=== PATIENT | male | born 1960 | race African-American/Black ===

== ENCOUNTER 2016-04-08 09:05 | Outpatient (CLI) | payer MEDICAID ==
[2016-04-08 12:40] LABS: #Basophils 0.1 thou/uL (0.0-0.2); #Eosinphils 0.3 thou/uL (0.0-0.7); #Lymphocytes 1.4 thou/uL (1.20-3.40); #Monocytes 0.5 thou/uL (0.11-0.59); #Neutrophils 4.4 thou/uL (1.40-6.50); %Basophils 1.6 % (0.0-1.0); %Eosinophils 4.4 % (0.0-10.0); %Lymphocytes 21.4 % (21.0-51.0); %Monocytes 7.6 % (0.0-10.0); Hematocrit 41.8 % (42.0-52.0); Mean Platelet Volume 5.8 fL (7.4-10.4); Red Blood Cell (RBC) Count 4.54 mill/uL (4.70-6.10); White Blood Cell (WBC) Count 6.7 thou/uL (4.8-10.8)
[2016-04-08 12:57] LABS: ALT (SGPT) 10 U/L (0-55); AST (SGOT) 15 U/L (5-34); Alkaline Phosphatase 78 U/L (40-150); Anion Gap 11 mmol/L (10-20); BUN (Urea Nitrogen) 16 mg/dL (8.4-25.7); Bilirubin, Total 0.6 mg/dL (0.2-1.2); Calc. Creatinine Clearance 0 mL/min (70-130); Calcium 8.8 mg/dL (7.8-10.44); Carbon Dioxide 30 mmol/L (22-29); Chloride 103 mmol/L (98-107); Estimated GFR-MDRD 86; Globulin 4.3 g/dL (2.4-3.5); LDL Cholesterol, Calculated 128 mg/dL
[2016-04-08 13:14] LABS: Hemoglobin A1c 6.2 % (4.0-6.0)
== END 2016-04-08 09:06 | disposition home or self-care (01) ==
LOC: NAVSJIPCSP 09:05
PROVIDERS: ATTEND Internal Medicine
DX: I10 Essential (primary) hypertension (principal); M1A.9XX0 Chronic gout, unspecified, without tophus (tophi); Z79.899 Other long term (current) drug therapy
CPT/HCPCS: 36415; 80053; 80061; 83036; 84443; 85025

== ENCOUNTER 2017-12-27 13:48 | Emergency (ER) | payer OTHER | END 2017-12-27 14:20 | disposition home or self-care (01) | LOC: NAV ERS 13:48 | DX: I10 Essential (primary) hypertension (principal); M10.9 Gout, unspecified; Z79.899 Other long term (current) drug therapy; Z79.82 Long term (current) use of aspirin | CPT/HCPCS: 99283 ==

== ENCOUNTER 2018-11-30 17:13 | Outpatient (CLI) | payer MEDICARE ==
--- NOTE | 2018-12-01 09:37 | CT ---
CT Abdomen Pelvis WO Con 11/30/2018 5:15 PM HISTORY: Elevated liver function tests and elevated creatinine. COMPARISON: None. Technique: Multiple contiguous axial CT images are obtained through the abdomen and pelvis without IV contrast. Coronal reformats are provided. FINDINGS: This examination is limited for the evaluation of solid organs and vascular structures due to the lac k of intravenous contrast. Lower Chest: Atelectasis is present at the right lung base. There is a noncalcified 9 mm pulmonary no dule at the left lung base. Abdomen: Liver: There is slight heterogeneity in the right hepatic lobe. This is difficult to adequately evalu ate and may actually represent vascular structures is difficult to adequately evaluate without IV contrast. Gallbladder: Suggestive slight increased density in the dependent portion gallbladder lumen which may represent sludge and/or gallbladder calculi. Pancreas: Grossly normal nonenhanced CT appearance Spleen: Grossly normal nonenhanced CT appearance. Adrenals: Grossly normal nonenhanced CT appearance. Kidneys: There is prominent motion limited evaluation of the left kidney. No renal or ureteral calcul i are seen bilaterally, and there is no evidence of hydronephrosis. Ureters: No ureteral calculus is seen.. Pelvis: Urinary bladder: A Lockett catheter is present in the urinary bladder which is decompressed. Reproductive Organs: No pelvic masses. Lymph Nodes: No enlarged lymph nodes. Bowel: There are oval-shaped radiopaque density seen in loops of bowel in the right lower quadrant wh ich is likely intraluminal and may represent ingested material/medication. Second increased density structure may actually represent calcification adjacent to loop of bowel; however, this may also be i ntraluminal and represent ingested material. There is no evidence of a bowel obstruction. Appendix: Not definitely visualized, there are no secondary signs to suggest appendicitis. Peritoneum: No free fluid, free air, or fluid collection. Retroperitoneum: within normal limits. Vessels: Vascular calcifications are seen in the iliac arteries.. Abdominal Wall: A fat-containing ventral abdominal wall hernia is present in a supraumbilical locatio n. Bones: Multilevel degenerative changes are seen in the spine. There is suggestion of fusion of the sa croiliac joints bilaterally. Subchondral cystic changes are seen involving each acetabulum. IMPRESSION: 1. Pulmonary nodule left lung base. Follow-up CT thorax is recommended as there is prominent motion i n this region limiting adequate evaluation. 2. Suggestion of slight heterogeneity in the right hepatic lobe near the region of the madai hepatis. This may be attributable to vascular structures, but this is difficult further evaluate without IV contrast. History indicates elevated creatinine which may preclude further evaluation with CT abdomen with IV contrast. If the patient is unable to have CT abdomen with IV contrast performed, and ultrasound examination versus MRI may be helpful for further evaluation of the questioned area of het erogeneity. 3. Suggestion of minimal increased density material layering dependently within the gallbladder fundu s which may represent sludge and/or gallbladder calculi. 4. Fat-containing ventral abdominal wall hernia.
== END 2018-11-30 17:14 | disposition home or self-care (01) ==
LOC: NAV CT 17:13
PROVIDERS: ATTEND Internal Medicine
DX: R79.89 Other specified abnormal findings of blood chemistry (principal); R91.1 Solitary pulmonary nodule; K43.9 Ventral hernia without obstruction or gangrene
CPT/HCPCS: 74176

== ENCOUNTER 2019-11-04 07:41 | Emergency (ER) | payer MEDICARE ==
[2019-11-04] MEDS ORDERED: Lidocaine 1% (PF) 30 ML VIAL ONE (08:11)
== END 2019-11-04 08:40 | disposition home or self-care (01) ==
LOC: NAV ERS 07:41
DX: S71.112A Laceration without foreign body, left thigh, initial encounter (principal); I10 Essential (primary) hypertension; M10.9 Gout, unspecified; Z79.899 Other long term (current) drug therapy; Z79.82 Long term (current) use of aspirin; X58.XXXA Exposure to other specified factors, initial encounter
CPT/HCPCS: 12001; J2001

== ENCOUNTER 2020-06-13 16:06 | Emergency (ER) | payer MEDICARE ==
[~2020-06-13 16:06] MED LIST: Iopamidol 370 76% 100 ML VIAL ONE
[2020-06-13] MEDS ORDERED: Ibuprofen 800 MG TAB ONE (16:27)
[2020-06-13] MEDS ORDERED: Acetaminophen 500 MG TAB ONE (16:27)
[2020-06-13 16:39] LABS: #Basophils 0.3 thou/uL (0.0-0.2); #Lymphocytes 0.9 thou/uL (1.20-3.40); #Monocytes 1.6 thou/uL (0.11-0.59); %Basophils 2.9 % (0.0-1.0); %Eosinophils 0.1 % (0.0-10.0); %Lymphocytes 7.8 % (21.0-51.0); %Monocytes 13.5 % (0.0-10.0); %Neutrophils 75.7 % (42.0-75.0); Hemoglobin 9.2 g/dL (14.0-18.0); Mean Corpuscular HGB CONC 29.9 g/dL (32.0-36.0); Mean Corpuscular Hemoglobin 28.8 pg (27.0-31.0); Mean Corpuscular Volume 96.4 fL (78.0-98.0); Mean Platelet Volume 6.8 fL (7.4-10.4); Platelet Count 318 thou/uL (130-400); RBC Distribution Width 16.3 % (11.5-14.5); Red Blood Cell (RBC) Count 3.19 mill/uL (4.70-6.10); White Blood Cell (WBC) Count 11.8 thou/uL (4.8-10.8)
[2020-06-13 16:46] LABS: ALT (SGPT) 13 U/L (8-55); AST (SGOT) 43 U/L (5-34); Albumin 2.9 g/dL (3.4-4.8); Alkaline Phosphatase 82 U/L (40-110); Anion Gap 17 mmol/L (10-20); BUN (Urea Nitrogen) 12 mg/dL (8.4-25.7); Bilirubin, Total 0.7 mg/dL (0.2-1.2); Calc. Creatinine Clearance 0 mL/min (70-130); Calcium 8.9 mg/dL (7.8-10.44); Carbon Dioxide 26 mmol/L (23-31); Chloride 100 mmol/L (98-107); Globulin 4.8 g/dL (2.4-3.5); Glucose 142 mg/dL (80-115); Potassium 3.7 mmol/L (3.5-5.1); Protein, Total 7.7 g/dL (5.8-8.1); Sodium 139 mmol/L (136-145)
[2020-06-13] MEDS ORDERED: Sodium Chloride 0.9% 100 ML ONE (16:51)
[2020-06-13] MEDS ORDERED: Cefepime 2 GM VIAL ONE ×2 (16:51→19:08)
[2020-06-13] MEDS ORDERED: Sodium Chloride 0.9% 250 ML 250 ML ONE (16:51)
[2020-06-13] MEDS ORDERED: Vancomycin 1.5 GRAM/300 ML BAG ONE (16:51)
[2020-06-13 17:02] LABS: Bilirubin Negative (Negative); Blood, Urine Small (Negative); Glucose, Urine (Dipstick) Negative (Negative); Ketone, Urine Negative (Negative); Leukocyte Large (Negative); Nitrite Positive (Negative); Protein, Urine (Dipstick) > or equal to 300 mg/dL (Neg-Trace); Urobilinogen > or = 8.0 mg/dL (Less than 2)
[2020-06-13 17:05] LABS: Clarity Cloudy (Clear)
[2020-06-13 17:06] LABS: Squamous Epithelial 0-3 HPF (0-3); WBC/HPF Greater Than 50 HPF (0-3)
[2020-06-13 17:07] LABS: Bacteria/HPF 4+ HPF (None Seen)
[2020-06-13] MEDS ORDERED: metroNIDAZOLE 500 MG/100 ML BAG ONE (17:43)
[2020-06-13] MEDS ORDERED: Sodium Chloride 0.9% 2,000 ML ONE (18:07)
== END 2020-06-13 18:42 | disposition short-term general hospital (02) ==
LOC: NAV ERS 16:06
DX: A41.9 Sepsis, unspecified organism (principal); R65.20 Severe sepsis without septic shock; J18.9 Pneumonia, unspecified organism; N39.0 Urinary tract infection, site not specified; I10 Essential (primary) hypertension; Z79.899 Other long term (current) drug therapy; Z79.82 Long term (current) use of aspirin
CPT/HCPCS: 74177; 80053; 81003; 81015; 82274; 83605; 85025; 87040; 87077; 87086; 87149; 87186; 96365; 96366; 96367; J0692; J3370; J3490; J7050; Q9967

== ENCOUNTER 2020-06-18 14:55 | Inpatient (IN) | payer MEDICARE ==
[2020-06-18] MEDS ORDERED: Senokot S 8.6-50 MG TAB PO PRN (18:07)
[2020-06-18] MEDS ORDERED: Polyethylene Glycol 3350 17 GM Packet PO PRN (18:07)
[2020-06-18] MEDS: Ciprofloxacin 500 MG TAB PO SCH (20:51)
[2020-06-18] MEDS: Simethicone Chewable 80 MG TAB PO PRN (20:52)
[2020-06-18] MEDS: AcetaZOLAMIDE 250 MG TAB PO SCH (21:00)
[2020-06-19 05:30] LABS: Hemoglobin 10.2 g/dL (14.0-18.0); Mean Corpuscular Hemoglobin 28.9 pg (27.0-31.0); Red Blood Cell (RBC) Count 3.51 mill/uL (4.70-6.10); White Blood Cell (WBC) Count 7.2 thou/uL (4.8-10.8)
[2020-06-19 05:31] LABS: #Basophils 0.1 thou/uL (0.0-0.2); #Eosinphils 0.1 thou/uL (0.0-0.7); #Lymphocytes 1.1 thou/uL (1.20-3.40); #Monocytes 0.7 thou/uL (0.11-0.59); #Neutrophils 5.2 thou/uL (1.40-6.50); %Basophils 1.3 % (0.0-1.0); %Eosinophils 1.3 % (0.0-10.0); %Lymphocytes 15.7 % (21.0-51.0); %Monocytes 9.6 % (0.0-10.0); %Neutrophils 72.1 % (42.0-75.0); Manual Diff?? NO; Mean Corpuscular HGB CONC 28.2 g/dL (32.0-36.0); Mean Platelet Volume 6.8 fL (7.4-10.4); Platelet Count 325 thou/uL (130-400); RBC Distribution Width 17.1 % (11.5-14.5)
[2020-06-19 05:33] LABS: Albumin 2.9 g/dL (3.4-4.8); Alkaline Phosphatase 68 U/L (40-110); Anion Gap 12 mmol/L (10-20); BUN (Urea Nitrogen) 10 mg/dL (8.4-25.7); Bilirubin, Total 0.3 mg/dL (0.2-1.2); Calc. Creatinine Clearance 227 mL/min (70-130); Calcium 9.2 mg/dL (7.8-10.44); Carbon Dioxide 32 mmol/L (23-31); Chloride 100 mmol/L (98-107); Globulin 4.3 g/dL (2.4-3.5); Glucose 91 mg/dL (80-115); Potassium 3.1 mmol/L (3.5-5.1); Protein, Total 7.2 g/dL (5.8-8.1); Sodium 141 mmol/L (136-145)
[2020-06-19 05:34] LABS: ALT (SGPT) 12 U/L (8-55); AST (SGOT) 30 U/L (5-34)
[2020-06-19] MEDS: Ciprofloxacin 500 MG TAB PO SCH ×2 (06:07→21:15)
[2020-06-19] MEDS ORDERED: Potassium Chloride 20 MEQ TAB PO SCH (08:00)
[2020-06-19] MEDS: AcetaZOLAMIDE 250 MG TAB PO SCH ×2 (08:55→21:14)
[2020-06-19] MEDS: Allopurinol 100 MG TAB PO SCH (08:55)
[2020-06-19] MEDS: Simethicone Chewable 80 MG TAB PO PRN (08:56)
[2020-06-19] MEDS: Torsemide 20 MG TAB PO SCH (08:56)
[2020-06-19] MEDS: Lisinopril 10 MG TAB PO SCH (08:56)
[2020-06-19] MEDS ORDERED: Diphenoxylate HCl/Atropine Tablet PO PRN (11:56)
[2020-06-19] MEDS ORDERED: Diphenoxylate HCl/Atropine Tablet PO SCH (12:00)
[2020-06-19] MEDS: traMADol HCl 50 MG TAB PO PRN (18:24)
[2020-06-20] MEDS: Ciprofloxacin 500 MG TAB PO SCH ×2 (06:02→20:53)
[2020-06-20 07:53] LABS: Anion Gap 11 mmol/L (10-20); BUN (Urea Nitrogen) 14 mg/dL (8.4-25.7); Calc. Creatinine Clearance 219 mL/min (70-130); Calcium 8.4 mg/dL (7.8-10.44); Carbon Dioxide 33 mmol/L (23-31); Chloride 99 mmol/L (98-107); Glucose 92 mg/dL (80-115); Potassium 3.5 mmol/L (3.5-5.1); Sodium 139 mmol/L (136-145)
[2020-06-20] MEDS: Potassium Chloride 20 MEQ TAB PO SCH ×2 (08:20→16:47)
[2020-06-20] MEDS: AcetaZOLAMIDE 250 MG TAB PO SCH ×2 (08:20→20:53)
[2020-06-20] MEDS: Lisinopril 10 MG TAB PO SCH (08:21)
[2020-06-20] MEDS: Allopurinol 100 MG TAB PO SCH (08:21)
[2020-06-20] MEDS: Enoxaparin Sodium 40 MG/0.4 ML SYRINGE SC SCH (08:21)
[2020-06-20] MEDS: traMADol HCl 50 MG TAB PO PRN ×2 (08:22→21:51)
[2020-06-20] MEDS: Torsemide 20 MG TAB PO SCH (08:22)
[2020-06-21] MEDS: Ciprofloxacin 500 MG TAB PO SCH ×2 (05:31→20:20)
[2020-06-21 05:39] LABS: Anion Gap 8 mmol/L (10-20); BUN (Urea Nitrogen) 13 mg/dL (8.4-25.7); Calc. Creatinine Clearance 219 mL/min (70-130); Calcium 8.4 mg/dL (7.8-10.44); Carbon Dioxide 34 mmol/L (23-31); Chloride 100 mmol/L (98-107); Glucose 102 mg/dL (80-115); Potassium 3.1 mmol/L (3.5-5.1); Sodium 139 mmol/L (136-145)
[2020-06-21] MEDS: Lisinopril 10 MG TAB PO SCH (09:13)
[2020-06-21] MEDS: Torsemide 20 MG TAB PO SCH (09:13)
[2020-06-21] MEDS: Potassium Chloride 20 MEQ TAB PO SCH ×2 (09:14→16:04)
[2020-06-21] MEDS: Allopurinol 100 MG TAB PO SCH (09:14)
[2020-06-21] MEDS: AcetaZOLAMIDE 250 MG TAB PO SCH ×2 (09:15→20:20)
[2020-06-21] MEDS: Enoxaparin Sodium 40 MG/0.4 ML SYRINGE SC SCH (09:16)
[2020-06-22] MEDS: Ciprofloxacin 500 MG TAB PO SCH ×2 (05:09→20:12)
[2020-06-22 06:39] LABS: Anion Gap 12 mmol/L (10-20); BUN (Urea Nitrogen) 12 mg/dL (8.4-25.7); Calc. Creatinine Clearance 216 mL/min (70-130); Calcium 8.7 mg/dL (7.8-10.44); Carbon Dioxide 30 mmol/L (23-31); Chloride 101 mmol/L (98-107); Glucose 93 mg/dL (80-115); Potassium 3.5 mmol/L (3.5-5.1); Sodium 139 mmol/L (136-145)
[2020-06-22] MEDS: Potassium Chloride 20 MEQ TAB PO SCH ×2 (09:03→18:03)
[2020-06-22] MEDS: Torsemide 20 MG TAB PO SCH (09:04)
[2020-06-22] MEDS: Allopurinol 100 MG TAB PO SCH (09:04)
[2020-06-22] MEDS: AcetaZOLAMIDE 250 MG TAB PO SCH ×2 (09:04→20:12)
[2020-06-22] MEDS: Lisinopril 10 MG TAB PO SCH (09:04)
[2020-06-22] MEDS: Enoxaparin Sodium 40 MG/0.4 ML SYRINGE SC SCH (09:05)
[2020-06-23] MEDS: Ciprofloxacin 500 MG TAB PO SCH ×2 (05:27→21:03)
[2020-06-23] MEDS: AcetaZOLAMIDE 250 MG TAB PO SCH ×2 (08:54→21:02)
[2020-06-23] MEDS: Potassium Chloride 20 MEQ TAB PO SCH ×2 (08:54→16:50)
[2020-06-23] MEDS: Allopurinol 100 MG TAB PO SCH (08:55)
[2020-06-23] MEDS: Enoxaparin Sodium 40 MG/0.4 ML SYRINGE SC SCH (08:55)
[2020-06-23] MEDS: Torsemide 20 MG TAB PO SCH (08:55)
[2020-06-23] MEDS: Lisinopril 10 MG TAB PO SCH (08:55)
[2020-06-23 16:10] VITALS: BMI 49.4
[2020-06-24] MEDS: Ciprofloxacin 500 MG TAB PO SCH ×2 (05:13→20:23)
[2020-06-24] MEDS: Enoxaparin Sodium 40 MG/0.4 ML SYRINGE SC SCH (08:09)
[2020-06-24] MEDS: Allopurinol 100 MG TAB PO SCH (08:10)
[2020-06-24] MEDS: AcetaZOLAMIDE 250 MG TAB PO SCH ×2 (08:10→20:23)
[2020-06-24] MEDS: Potassium Chloride 20 MEQ TAB PO SCH ×2 (08:10→16:51)
[2020-06-24] MEDS: Torsemide 20 MG TAB PO SCH (08:11)
[2020-06-24] MEDS: Lisinopril 10 MG TAB PO SCH (09:41)
[2020-06-24] MEDS ORDERED: Eucerin (Mineral Oil/Petrolatum,White) 30 gm Jar TOP SCH (12:15)
[2020-06-24] MEDS: traMADol HCl 50 MG TAB PO PRN (21:26)
[2020-06-25] MEDS: Ciprofloxacin 500 MG TAB PO SCH ×2 (05:50→20:36)
[2020-06-25] MEDS: Potassium Chloride 20 MEQ TAB PO SCH ×2 (09:05→16:33)
[2020-06-25] MEDS: Allopurinol 100 MG TAB PO SCH (09:06)
[2020-06-25] MEDS: Enoxaparin Sodium 40 MG/0.4 ML SYRINGE SC SCH (09:06)
[2020-06-25] MEDS: Torsemide 20 MG TAB PO SCH (09:07)
[2020-06-25] MEDS: Lisinopril 10 MG TAB PO SCH (09:07)
[2020-06-25] MEDS: AcetaZOLAMIDE 250 MG TAB PO SCH ×2 (09:08→20:35)
[2020-06-25] MEDS: Eucerin (Mineral Oil/Petrolatum,White) 30 gm Jar TOP SCH (09:09)
[2020-06-26] MEDS: Potassium Chloride 20 MEQ TAB PO SCH ×2 (09:03→17:24)
[2020-06-26] MEDS: Allopurinol 100 MG TAB PO SCH (09:03)
[2020-06-26] MEDS: Torsemide 20 MG TAB PO SCH (09:03)
[2020-06-26] MEDS: Lisinopril 10 MG TAB PO SCH (09:04)
[2020-06-26] MEDS: Enoxaparin Sodium 40 MG/0.4 ML SYRINGE SC SCH (09:04)
[2020-06-26] MEDS: Eucerin (Mineral Oil/Petrolatum,White) 30 gm Jar TOP SCH (09:05)
[2020-06-26] MEDS: AcetaZOLAMIDE 250 MG TAB PO SCH ×2 (09:06→21:38)
[2020-06-27 06:01] LABS: Anion Gap 12 mmol/L (10-20); BUN (Urea Nitrogen) 17 mg/dL (8.4-25.7); Calc. Creatinine Clearance 177 mL/min (70-130); Calcium 8.7 mg/dL (7.8-10.44); Carbon Dioxide 25 mmol/L (23-31); Chloride 104 mmol/L (98-107); Glucose 119 mg/dL (80-115); Potassium 3.6 mmol/L (3.5-5.1); Sodium 137 mmol/L (136-145)
[2020-06-27 06:16] LABS: #Basophils 0.1 thou/uL (0.0-0.2); #Eosinphils 0.2 thou/uL (0.0-0.7); #Lymphocytes 1.9 thou/uL (1.20-3.40); #Monocytes 0.6 thou/uL (0.11-0.59); #Neutrophils 3.8 thou/uL (1.40-6.50); %Basophils 1.8 % (0.0-1.0); %Eosinophils 2.8 % (0.0-10.0); %Lymphocytes 28.6 % (21.0-51.0); %Neutrophils 57.8 % (42.0-75.0); Hemoglobin 9.6 g/dL (14.0-18.0); Mean Corpuscular HGB CONC 28.4 g/dL (32.0-36.0); Mean Corpuscular Hemoglobin 28.5 pg (27.0-31.0); Mean Platelet Volume 7.8 fL (7.4-10.4); Platelet Count 288 thou/uL (130-400); RBC Distribution Width 17.9 % (11.5-14.5); Red Blood Cell (RBC) Count 3.37 mill/uL (4.70-6.10); White Blood Cell (WBC) Count 6.6 thou/uL (4.8-10.8)
[2020-06-27 06:17] LABS: Anisocytosis SLIGHT = 6-15 cells (100X) (0-5/hpf); Band 4 % (5-11); Eosinophils 4 % (0-10); Hypochromia SLIGHT = 6-15 cells (100X) (0-5/hpf); Large Platelets SLIGHT; Lymphocytes 34 % (21-51); MDiff Complete? YES; Monocytes 1 % (0-10); Neutrophil 57 % (42-75); Platelet Morphology Comment Appears Adequate
[2020-06-27] MEDS: Enoxaparin Sodium 40 MG/0.4 ML SYRINGE SC SCH (09:01)
[2020-06-27] MEDS: Allopurinol 100 MG TAB PO SCH (09:01)
[2020-06-27] MEDS: Torsemide 20 MG TAB PO SCH (09:02)
[2020-06-27] MEDS: Potassium Chloride 20 MEQ TAB PO SCH ×2 (09:02→17:06)
[2020-06-27] MEDS: Lisinopril 10 MG TAB PO SCH (09:02)
[2020-06-27] MEDS: Eucerin (Mineral Oil/Petrolatum,White) 30 gm Jar TOP SCH (09:03)
[2020-06-27] MEDS: AcetaZOLAMIDE 250 MG TAB PO SCH ×2 (09:03→20:53)
[2020-06-28] MEDS: Enoxaparin Sodium 40 MG/0.4 ML SYRINGE SC SCH (08:52)
[2020-06-28] MEDS: Lisinopril 10 MG TAB PO SCH (08:53)
[2020-06-28] MEDS: Allopurinol 100 MG TAB PO SCH (08:53)
[2020-06-28] MEDS: Torsemide 20 MG TAB PO SCH (08:53)
[2020-06-28] MEDS: AcetaZOLAMIDE 250 MG TAB PO SCH (08:54)
[2020-06-28] MEDS: Potassium Chloride 20 MEQ TAB PO SCH (08:57)
[2020-06-28] MEDS: Eucerin (Mineral Oil/Petrolatum,White) 30 gm Jar TOP SCH (09:00)
[2020-06-28 09:07] VITALS: BP 123/74; TEMP 96.5
== END 2020-06-28 13:34 | disposition home health service (06) | DRG 872 ==
LOC: NAV ACUTE 14:55
PROVIDERS: ADMIT Internal Medicine; ATTEND Internal Medicine
DX: A41.51 Sepsis due to Escherichia coli [E. coli] (principal); N39.0 Urinary tract infection, site not specified; Z68.42 Body mass index [BMI] 45.0-49.9, adult; E87.6 Hypokalemia; I10 Essential (primary) hypertension; E66.01 Morbid (severe) obesity due to excess calories; G47.33 Obstructive sleep apnea (adult) (pediatric); Z86.16 Personal history of COVID-19; R19.7 Diarrhea, unspecified; R09.02 Hypoxemia; I87.2 Venous insufficiency (chronic) (peripheral); R53.81 Other malaise
CPT/HCPCS: 80048; 80053; 85025; 97602; J1650

== ENCOUNTER 2023-12-23 14:58 | Emergency (ER) | payer MEDICARE ==
[2023-12-23] MEDS ORDERED: Sodium Chloride 0.9% 1,000 ML ONE (15:27)
[2023-12-23 15:32] LABS: #Eosinphils 0.2 thou/uL (0.0-0.7); #Lymphocytes 1.8 thou/uL (1.20-3.40); #Monocytes 0.8 thou/uL (0.11-0.59); #Neutrophils 4.9 thou/uL (1.40-6.50); %Basophils 0.5 % (0.0-1.0); %Eosinophils 2.2 % (0.0-10.0); %Lymphocytes 22.9 % (21.0-51.0); %Monocytes 10.8 % (0.0-10.0); %Neutrophils 63.6 % (42.0-75.0); Hematocrit 44.2 % (42.0-52.0); Mean Corpuscular HGB CONC 29.5 g/dL (32.0-36.0); Mean Corpuscular Hemoglobin 29.6 pg (27.0-31.0); Mean Platelet Volume 6.7 fL (7.4-10.4); Platelet Count 279 10x3/uL (130-400); RBC Distribution Width 13.8 % (11.5-14.5); White Blood Cell (WBC) Count 7.8 10x3/uL (4.8-10.8)
[2023-12-23] MEDS ORDERED: Nitroglycerin 2% Ointment 1 INCH/1 GM Packet ONE (15:35)
[2023-12-23 15:53] LABS: ALT (SGPT) 7 U/L (8-55); AST (SGOT) 14 U/L (5-34); Albumin 3.2 g/dL (3.4-4.8); Alkaline Phosphatase 80 U/L (40-110); Anion Gap 17 mmol/L (10-20); BUN (Urea Nitrogen) 16 mg/dL (8.4-25.7); Bilirubin, Total 0.8 mg/dL (0.2-1.2); Calc. Creatinine Clearance 0 mL/min (70-130); Carbon Dioxide 31 mmol/L (23-31); Chloride 100 mmol/L (98-107); Estimated GFR 62; Globulin 4.3 g/dL (2.4-3.5); Glucose 125 mg/dL (80-115); Potassium 3.8 mmol/L (3.5-5.1); Protein, Total 7.5 g/dL (5.8-8.1); Sodium 144 mmol/L (136-145); Troponin I Less than 0.010 ng/mL (< 0.028)
== END 2023-12-23 18:02 | disposition home or self-care (01) ==
LOC: NAV ERS 14:58
DX: I12.9 Hypertensive chronic kidney disease with stage 1 through stage 4 chronic kidney disease, or unspecified chronic kidney disease (principal); N18.9 Chronic kidney disease, unspecified; E78.5 Hyperlipidemia, unspecified; Z79.899 Other long term (current) drug therapy; Z79.82 Long term (current) use of aspirin
CPT/HCPCS: 71045; 71275; 80053; 83880; 84484; 85025; 85379; 93005; 94760; 96360; J7030